=== PATIENT | male | born 1970 | race African-American/Black ===

== ENCOUNTER 2020-05-21 11:01 | Emergency (ER) | payer MEDICARE ==
[2020-05-21 12:13] LABS: #Eosinphils 0.1 10x3/uL (0.0-0.5); #Monocytes 0.6 10x3/uL (0.0-1.1); #Neutrophils 7.3 10x3/uL (1.5-8.4); %Basophils 0.3 % (0.0-2.0); %Eosinophils 1.4 % (0.0-6.0); %Lymphocytes 9.5 % (18.0-47.0); %Monocytes 7.1 % (0.0-10.0); %Neutrophils 80.2 % (40.0-75.0); Hemoglobin 6.4 g/dL (13.5-17.5); Mean Corpuscular HGB CONC 30.9 g/dL (32.0-36.0); Mean Corpuscular Hemoglobin 30.5 pg (27.0-33.0); Mean Corpuscular Volume 98.6 fl (81.2-95.1); Mean Platelet Volume 10.2 fl (7.4-10.4); Platelet Count 272 10x3/uL (150-450); RBC Distribution Width 17.9 % (11.5-14.5); White Blood Cell (WBC) Count 9.1 10x3/uL (3.5-10.5)
[2020-05-21 12:37] LABS: PTT 27.1 sec (22.0-33.0); Prothrombin Time 11.2 sec (9.5-12.1)
[2020-05-21 12:39] LABS: ALT (SGPT) 24 U/L (8-55); AST (SGOT) 19 U/L (5-34); Albumin 3.8 g/dL (3.5-5.0); Alkaline Phosphatase 69 U/L (40-110); Anion Gap 19 mmol/L (10-20); BUN (Urea Nitrogen) 24 mg/dL (8.9-20.6); Bilirubin, Total 0.3 mg/dL (0.2-1.2); CK (CPK) 228 U/L (30-200); Calc. Creatinine Clearance 0 mL/min (70-130); Calcium 9.2 mg/dL (7.8-10.44); Carbon Dioxide 30 mmol/L (22-29); Chloride 92 mmol/L (98-107); Globulin 3.4 g/dL (2.4-3.5); Glucose 100 mg/dL (70-105); Potassium 3.8 mmol/L (3.5-5.1); Protein, Total 7.2 g/dL (6.0-8.3); Sodium 137 mmol/L (136-145)
[2020-05-21 18:12] LABS: Hemoglobin 15.9 g/dL (13.5-17.5); Mean Corpuscular HGB CONC 30.4 g/dL (32.0-36.0); Mean Corpuscular Hemoglobin 29.9 pg (27.0-33.0); Mean Corpuscular Volume 98.3 fl (81.2-95.1); RBC Distribution Width 14.5 % (11.5-14.5); Red Blood Cell (RBC) Count 5.32 10x6/uL (4.32-5.72); White Blood Cell (WBC) Count 3.9 10x3/uL (3.5-10.5)
[2020-05-21 18:13] LABS: #Eosinphils 0.1 10x3/uL (0.0-0.5); #Monocytes 0.7 10x3/uL (0.0-1.1); #Neutrophils 2.5 10x3/uL (1.5-8.4); %Eosinophils 2.1 % (0.0-6.0); %Lymphocytes 12.2 % (18.0-47.0); %Monocytes 17.6 % (0.0-10.0); %Neutrophils 65.3 % (40.0-75.0); Mean Platelet Volume 11.4 fl (7.4-10.4)
[2020-05-21 18:45] LABS: Platelet Count 64 10x3/uL (150-450); RBC Morphology Normal
[2020-05-21 18:46] LABS: Platelet Morphology Comment Appears Decreased
== END 2020-05-21 19:12 | disposition home or self-care (01) ==
LOC: CSHERS 11:01
DX: D64.9 Anemia, unspecified (principal); E11.29 Type 2 diabetes mellitus with other diabetic kidney complication; N18.6 End stage renal disease; I25.10 Atherosclerotic heart disease of native coronary artery without angina pectoris; Z79.82 Long term (current) use of aspirin; Z79.899 Other long term (current) drug therapy
CPT/HCPCS: 36430; 80053; 82274; 82550; 83605; 85025; 85610; 85730; 86850; 86900; 86901; 86920; 93005; P9016

== ENCOUNTER → 2020-06-04 | Day surgery (SDC) | payer MEDICARE | LOC: CSHERS 10:58 → CSHSDC 12:06 | PROVIDERS: ATTEND Internal Medicine Nephrology | DX: D64.9 Anemia, unspecified (principal) | CPT/HCPCS: 36430; 86850; 86900; 86901; 86920; P9016; 36415; 99281 ==